=== PATIENT | female | born 1990 | race American Indian/Alaskan Native ===

== ENCOUNTER 2020-08-16 00:11 | Emergency (ER) | payer MEDICAID ==
--- NOTE | 2020-08-16 01:40 | XRay Report ---
XR shoulder 2+V LT INDICATION: pain and swelling. COMPARISON: No relevant prior imaging study available. FINDINGS: No acute skeletal abnormality. No significant soft tissue abnormality. IMPRESSION: 1. No acute findings. Signer Name: Willi Tran MD Signed: 08/16/2020 1:36 AM Workstation Name: [id number]
--- NOTE | 2020-08-16 07:37 | Emergency Department Report ---
Upper Extremity - HPI Chief Complaint: Extremity Injury, Upper Stated Complaint: LT SHOULDER PAIN Time Seen by Provider: 08/16/20 07:32 Upper Extremity: Left Shoulder Occurred When: >5 Days Mechanism: Other Severity: mild Symptoms: Yes Pain with Movement, No Deformity, No Limited Range of Movement, No Numbness, No Weakness, No Swelling, No Bruising/Ecchymosis, No Laceration or Abrasion Other History: Patient is a 30-year-old female that comes to the emergency room complaining of left shoulder pain. She endorses prior rotator cuff injury. She also reports that she has had dislocated shoulder in the past. X-ray as ordered by overnight RN is negative for dislocation or fracture. Patient has no new fall or trauma. Patient has taken nothing prior to arrival to the ER for her discomfort. The pain is worse with movement. ED Review of Systems ROS: Stated complaint: LT SHOULDER PAIN Other details as noted in HPI Comment: All other systems reviewed and negative ED Past Medical Hx - Past Medical History Previous Medical History?: Yes Hx Arthritis: Yes (RA) Additional medical history: Lupus. Reynauld's - Surgical History Past Surgical History?: Yes Additional Surgical History: - Family History Family history: no significant - Social History Smoking Status: Never Smoker Substance Use Type: None Upper Extremity Exam - Exam General: Vital signs noted. No distress. Alert and acting appropriately. hr on provider exam 88 Head and Torso: No HEENT Abnormality, No Neck Tenderness, No Chest/Lungs Abnormality, No Abdominal Tenderness, No Back Tenderness Shoulder Exam: Yes Normal Range of Motion in Shoulder, No Shoulder Tenderness, N o Clavicle Tenderness, No Shoulder Deformity, No AC Joint Tenderness Arm Exam: No Arm/Humerus Tenderness, No Arm Deformity Elbow: No Elbow Tenderness, No Normal Range of Motion in Elbow, No Elbow Deformity Forearm: No Forearm Tenderness, No Forearm Deformity, No Pain with Pronation, No Pain with Supination Wrist: Yes Normal ROM in Wrist, No Wrist Tenderness, No Wrist Deformity, No Snuffbox Tenderness, No Pain with Axial Thumb Compression Hand: Yes Normal ROM in Digit(s), No Hand Tenderness, No Hand Deformity, No Digit Tenderness, No Digit(s) Deformity, No Tendon Dysfunction CMS Exam: No Broken Skin, No Normal Distal Pulses, No Normal Capillary Refill, No Normal Distal Sensation ED Medical Decision Making - Radiology Data Radiology results: report reviewed, image reviewed nap - Medical Decision Making xray neg sling for comfort. dc home with dc plan of care including ortho follow up pt verbalizes understanding of dc plan of care. Vital Signs 08/16/20 07:42 Temperature 98.7 F Pulse Rate 105 H Respiratory 20 Rate Blood Pressure 117/70 O2 Sat by Pulse 97 Oximetry - Differential Diagnosis ro fx/dislocation Critical care attestation.: If time is entered above; I have spent that time in minutes in the direct care of this critically ill patient, excluding procedure time. ED Disposition Clinical Impression: Shoulder pain Disposition: DC-01 TO HOME OR SELFCARE Is pt being admited?: No Does the pt Need Aspirin: No Condition: Stable Instructions: Shoulder Pain Additional Instructions: alternate ice and warm compresses over the counter motrin and tylenol for pain follow up with ortho MD for work restrictions sling for comfort Referrals: DESIRE FOX MD [Staff Physician] - 3-5 Days Forms: Work/School Release Form(ED) Time of Disposition: 07:35
[2020-08-16 07:48] VITALS: BP 117/70
== END 2020-08-16 07:48 | disposition home or self-care (01) ==
LOC: ED 00:11
DX: M25.512 Pain in left shoulder (principal); M19.90 Unspecified osteoarthritis, unspecified site; Z88.8 Allergy status to other drugs, medicaments and biological substances; Z91.040 Latex allergy status; Z98.890 Other specified postprocedural states